=== PATIENT | male | born 1980 | race Caucasian/White ===

== ENCOUNTER 2016-10-01 09:48 | Emergency (ER) | payer OTHER ==
[~2016-10-01] VITALS: Ht 170.2 cm; Wt 74.8 kg
[~2016-10-01 09:48] MED LIST: MEDROLDOSEPACK PO; NOHOMEMEDICATIONS; NORCO 5-325 TA1 EACH PO; PEPCID AC20 M1 PO; PREDNISONE 20 M20 MG PO; TAMSULOSIN HCL0.4 MG PO; ZOFRAN4 MG PO
[2016-10-01] MEDS ORDERED: ULTRAM 50MG TAB50 MG PO (09:56)
[2016-10-01 10:40] LABS: URINE BILIRUBIN NEGATIVE (Negative); URINE BLOOD TRACE (Negative); URINE COLOR YELLOW; URINE GLUCOSE-RANDOM* NEGATIVE (Negative); URINE KETONES NEGATIVE (Negative); URINE NITRITE NEGATIVE (Negative); URINE PROTEIN (DIPSTICK) NEGATIVE (Negative); URINE UROBILINOGEN 0.2 E.U./dl (0.2-1.0)
[2016-10-01 10:44] LABS: ABSOLUTE NEUTROPHILS 5.3 thou/uL (1.4-8.2); BASOPHILS 0.7 % (0.0-2.0); EOSINOPHILS 1.8 % (0.0-3.0); HEMATOCRIT 46.2 % (42.0-52.0); HEMOGLOBIN 15.8 gm/dL (14.0-18.0); LYMPHOCYTES 28.8 % (24.0-44.0); MCH 30.1 pg (26.0-34.0); MCHC 34.2 % (28.0-37.0); PLATELET COUNT 226 thou/uL (150-400); POLYS 59.7 % (36.0-66.0); RBC 5.25 mil/uL (4.50-6.00); RDW 12.5 % (10.5-14.5); WBC 8.8 thou/uL (4.0-11.0)
[2016-10-01 10:47] LABS: MANUAL DIFF NO
[2016-10-01 10:58] LABS: CALCIUM 9.2 mg/dL (8.5-10.1); CREATININE 1.2 mg/dL (0.6-1.3); POTASSIUM 3.2 mmol/L (3.5-5.1)
[2016-10-01] MEDS ORDERED: HYDROCODONE-AP1 EAC6 PO (12:03)
[2016-10-01] MEDS ORDERED: PHENERGAN 25 MG25 M1 PO (12:03)
[2016-10-01] MEDS ORDERED: FLOMAX0.4 MG PO (12:03)
[2016-10-01 12:58] VITALS: BP 102/63
== END 2016-10-01 12:59 | disposition home or self-care (01) ==
LOC: ER 09:48
PROVIDERS: Physician Assistant
DX: N20.0 Calculus of kidney (principal); Z87.442 Personal history of urinary calculi; Z88.0 Allergy status to penicillin; F17.210 Nicotine dependence, cigarettes, uncomplicated